=== PATIENT | male | born 1965 | race Caucasian/White ===

== ENCOUNTER 2020-07-14 22:41 | Emergency (ER) | payer BC, OTHER ==
[~2020-07-14] VITALS: Ht 177.8 cm; Wt 111.1 kg
[~2020-07-14 22:41] MED LIST: LISI-603 PO
[2020-07-14 22:54] VITALS: BP 164/104
[2020-07-14] MEDS ORDERED: HYDROCODONE/APAP 5/325MG TABLET ONE (23:23)
[2020-07-14] MEDS ORDERED: HYDROCODONE/APAP 5/325MG TABLET PO ONE (23:30)
== END 2020-07-14 23:28 | disposition home or self-care (01) ==
LOC: ER 22:44
DX: R04.0 Epistaxis (principal); I10 Essential (primary) hypertension; Z87.442 Personal history of urinary calculi; Z98.890 Other specified postprocedural states; Z79.899 Other long term (current) drug therapy

== ENCOUNTER 2022-10-31 19:53 | Emergency (ER) | payer BC ==
[~2022-10-31] VITALS: Ht 177.8 cm; Wt 113.9 kg
[~2022-10-31 19:53] MED LIST changes: -LISI-603 PO; +LISI20TA30 PO
[2022-10-31 20:03] VITALS: BP 136/61
--- NOTE | 2022-10-31 20:14 | NUR ---
Patrick de la torre in [facility] - 11/01/22 at 0415 by SEBASTIAN called to triage no answer.
--- NOTE | 2022-10-31 20:35 | NUR ---
pt called to room no answer
== END 2022-10-31 20:35 | disposition left against medical advice (07) ==
LOC: ER 19:55
DX: T18.198A Other foreign object in esophagus causing other injury, initial encounter (principal); X58.XXXA Exposure to other specified factors, initial encounter; Y93.89 Activity, other specified; Y92.89 Other specified places as the place of occurrence of the external cause; Y99.8 Other external cause status